=== PATIENT | female | born 1990 | race Caucasian/White ===

== ENCOUNTER 2017-12-21 11:43 | Emergency (ER) | payer BC ==
[~2017-12-21] VITALS: Ht 165.1 cm; Wt 56.7 kg
[~2017-12-21 11:43] MED LIST: CPR500T PO; HYDR1TAB8 OP; NITR-65 PO; PHEN100T17 PO; [UNRECOGNIZED DRUG - REMARK]
--- OUTSIDE RECORDS SUMMARY | 2017-12-21 11:50 | XMS REPORT ---
Author Author TOM MUIR Organization [facility] Address [address] [place] [address] Care Team Providers Care Solar Systems Designer Name Role Phone TOM MUIR Unavailable PROBLEMS Type Condition ICD9-CM Code [id number] Code Onset Dates Condition Status SNOMED Code Problem School physical exam Z02.0 Active [id number] ALLERGIES Substance Reaction Event Type Date Status PredniSONE Unknown Drug Allergy February, Active SOCIAL HISTORY Never Assessed PLAN OF CARE Activity Details Follow Up prn Reason: VITAL SIGNS Height 65 in 2017-02-21 Weight 143.6 lbs 2017-02-21 Temperature 98.4 degrees Fahrenheit 2017-02-21 Heart Rate 88 bpm 2017-02-21 Respiratory Rate 20 2017-02-21 BMI 23.89 kg/m2 2017-02-21 Blood pressure systolic 112 mmHg 2017-02-21 Blood pressure diastolic 66 mmHg 2017-02-21 MEDICATIONS Medication Instructions Dosage Frequency Start Date End Date Duration Status Sudafed 12 Hour 120 MG Orally every 12 hrs 1 tablet as needed 12h February, 10 days Active Augmentin 875-125 MG Orally every 12 hrs 1 tablet 12h February,February 10 day(s) Active RESULTS No Results PROCEDURES No Known procedures IMMUNIZATIONS No Known Immunizations
--- OUTSIDE RECORDS SUMMARY | 2017-12-21 11:50 | XMS REPORT ---
Author Author MARYJO BUCKNER Organization [facility] Address [address] [place] [address] Care Team Providers Care Bleaching Machine Operator Name Role Phone MARYJO BUCKNER Unavailable PROBLEMS Type Condition ICD9-CM Code [id number] Code Onset Dates Condition Status SNOMED Code Assessment Bug bite, initial encounter W57.XXXA Jun, Active [id number] ALLERGIES Substance Reaction Event Type Date Status PredniSONE Unknown Drug Allergy Jun, Active SOCIAL HISTORY No smoking Hx information available PLAN OF CARE VITAL SIGNS Height 65 in 2016-06-30 Weight 141.0 lbs 2016-06-30 Heart Rate 84 bpm 2016-06-30 Respiratory Rate 20 2016-06-30 BMI 23.46 kg/m2 2016-06-30 Blood pressure systolic 98 mmHg 2016-06-30 Blood pressure diastolic 60 mmHg 2016-06-30 MEDICATIONS Medication Instructions Dosage Frequency Start Date End Date Duration Status Benadryl Itch Stopping 1-0.1 % Active Triamcinolone Acetonide 0.1 % Externally Twice a day 1 application to affected area 12h Jun, 5 days Active Calamine - Active RESULTS No Results PROCEDURES Procedure Date Ordered Related Diagnosis Body Site Office Visit, Est Pt., Level 3 Jun 30, 2016 IMMUNIZATIONS No Known Immunizations
--- OUTSIDE RECORDS SUMMARY | 2017-12-21 11:50 | XMS REPORT ---
Author Author DAVID MARCIAL Organization [facility] Address [address] [place] [address] Care Team Providers Care Laborer Ammunition Assembly Name Role Phone DAVID MARCIAL Unavailable PROBLEMS Type Condition ICD9-CM Code [id number] Code Onset Dates Condition Status SNOMED Code Assessment Encounter for occupational history and physical examination Z02.89 Jun, Active [id number] ALLERGIES Substance Reaction Event Type Date Status PredniSONE Unknown Drug Allergy Jun, Active SOCIAL HISTORY No smoking Hx information available PLAN OF CARE VITAL SIGNS Height 65 in 2016-06-13 Weight 141.6 lbs 2016-06-13 Heart Rate 80 bpm 2016-06-13 Respiratory Rate 18 2016-06-13 BMI 23.56 kg/m2 2016-06-13 Blood pressure systolic 108 mmHg 2016-06-13 Blood pressure diastolic 70 mmHg 2016-06-13 MEDICATIONS No Known Medications RESULTS No Results PROCEDURES Procedure Date Ordered Related Diagnosis Body Site Office Visit, Est Pt., Level 3 Jun 13, 2016 IMMUNIZATIONS No Known Immunizations
--- OUTSIDE RECORDS SUMMARY | 2017-12-21 11:50 | XMS REPORT ---
Author ONOFRE Jenkins [facility] [place] eClinicalWorks Address Unknown Phone Unavailable Care Team Providers Care Supervisor Contact And Service Clerks Name Role Phone ONOFRE KELLEY CP Unavailable Allergies No Known Allergies Problems Problem Type Condition Code Onset Dates Condition Status Assessment Visit for TB skin test Z11.1 Active Medications No Known Medications Procedures Procedure Coding System Code Date TB INTRADERMAL TEST CPT-4 99075 Jun 05, 2016 Results No Known Results Summary Purpose eClinicalWorks Submission
[2017-12-21] MEDS ORDERED: ONDANSETRON 4 MG/2 ML (SDV) Z0FRAN IVP ONE (12:00)
[2017-12-21 12:14] LABS: BASOPHILS % (AUTO) 0 % (0-10); EOSINOPHILS # (AUTO) 0.1 10^3/uL (0.0-0.3); EOSINOPHILS % (AUTO) 1 % (0-10); HEMATOCRIT 38 % (35-52); HEMOGLOBIN 13.7 G/DL (11.5-16.0); LYMPHOCYTES # (AUTO) 1.4 X 10^3 (1.0-4.0); LYMPHOCYTES % (AUTO) 14 % (12-44); MEAN CORPUSCULAR HEMOGLOBIN 30 PG (25-34); MEAN CORPUSCULAR HGB CONC 36 G/DL (32-36); MEAN CORPUSCULAR VOLUME 83 FL (80-99); MEAN PLATELET VOLUME 10.3 FL (7.4-10.4); MONOCYTES # (AUTO) 0.4 X 10^3 (0.0-1.0); MONOCYTES % (AUTO) 4 % (0-12); NEUTROPHILS % (AUTO) 81 % (42-75); PLATELET COUNT 234 10^3/uL (130-400); RED BLOOD COUNT 4.56 10^6/uL (4.35-5.85); RED CELL DISTRIBUTION WIDTH 12.1 % (10.0-14.5); WHITE BLOOD COUNT 9.9 10^3/uL (4.3-11.0)
[2017-12-21 12:14] LABS: BILIRUBIN,URINE NEGATIVE (NEGATIVE); CLARITY,URINE CLEAR; COLOR,URINE YELLOW; GLUCOSE, URINE (UA) NEGATIVE (NEGATIVE); KETONES,URINE 1+ (NEGATIVE); LEUKOCYTE ESTERASE ,URINE 1+ (NEGATIVE); NITRITE,URINE NEGATIVE (NEGATIVE); PH,URINE 7 (5-9); PROTEIN,URINE 2+ (NEGATIVE); UROBILINOGEN,URINE NORMAL (NORMAL)
[2017-12-21 12:18] LABS: HCG,QUALITATIVE URINE NEGATIVE (NEGATIVE)
[2017-12-21 12:25] LABS: AMPHETAMINE SCREEN, URINE NEGATIVE (NEGATIVE); BARBITURATE SCREEN URINE NEGATIVE (NEGATIVE); BENZODIAZEPINES SCREEN URINE NEGATIVE (NEGATIVE); CANNABINOID SCREEN, URINE NEGATIVE (NEGATIVE); COCAINE SCREEN URINE NEGATIVE (NEGATIVE); METHADONE STAT NEGATIVE (NEGATIVE); METHAMPHETAMINE SCREEN URINE S NEGATIVE (NEGATIVE); OPIATE SCREEN URINE NEGATIVE (NEGATIVE); OXYCODONE STAT NEGATIVE (NEGATIVE); PROPOXYPHENE STAT NEGATIVE (NEGATIVE); TRICYCLIC ANTIDEPRESSANTS SCRE NEGATIVE (NEGATIVE)
[2017-12-21 12:33] LABS: ALANINE AMINOTRANSFERASE 15 U/L (0-55); ALBUMIN 4.2 GM/DL (3.2-4.5); ALKALINE PHOSPHATASE 45 U/L (40-136); BILIRUBIN,TOTAL 0.4 MG/DL (0.1-1.0); BUN/CREATININE RATIO 15; CALCIUM 9.2 MG/DL (8.5-10.1); CARBON DIOXIDE 22 MMOL/L (21-32); CHLORIDE 109 MMOL/L (98-107); CREATININE SERUM 0.72 MG/DL (0.60-1.30); GFR ESTIMATED > 60; GLUCOSE 112 MG/DL (70-105); POTASSIUM 3.9 MMOL/L (3.6-5.0); SODIUM 140 MMOL/L (135-145); TOTAL PROTEIN 6.8 GM/DL (6.4-8.2)
[2017-12-21 12:35] LABS: AMORPHOUS SEDIMENT,UR MOD AMOR PHOSPHATE /LPF
[2017-12-21 12:39] LABS: WBC,URINE RARE /HPF
--- NOTE | 2017-12-21 12:39 | ED Abdominal Pain ---
General Chief Complaint: Abdominal/GI Problems Stated Complaint: ABD PAIN Nursing Triage Note: C/O LOWER TRANSVERSE ABD PAIN SINCE THIS AM. nAUSEA WITH VOMITING. BURING WITH URINATION Sepsis Screen: No Definite Risk Source of Information: Patient History of Present Illness Date Seen by Provider: Dec 21, 2017 Time Seen by Provider: 12:36 Initial Comments The patient is a 27-year-old white female. She presents with a chief complaint of suprapubic abdominal pain. She states that this began early this morning and awakened her from sleep. She has a past history of kidney stones. She also states that she has been given a tentative diagnosis of polycystic ovarian disease although she really does not exhibit the usual body type. She does not describe dysuria. She is on her menstrual period and actively flowing. She had a bowel movement today which was somewhat loose. She took NSAIDs earlier and had reasonable relief of pain. Timing/Duration: 12 Hours Severity/Quality: Moderate Location: Suprapubic Radiation: Back Activities at Onset: Rest Allergies and Home Medications Allergies Coded Allergies: prednisone (Verified Allergy, Intermediate, HALLUCINATION, 12/21/17) WAS WORSE WHEN SHE WAS A CHILD NOW JUST NOT GIVEN HIGH DOSES Patient Home Medication List Home Medication List Reviewed: Yes Review of Systems Constitutional: see HPI EENTM: No Symptoms Reported Respiratory: No Symptoms Reported Cardiovascular: No Symptoms Reported Gastrointestinal: Diarrhea Genitourinary: Other (menses) Musculoskeletal: no symptoms reported Skin: no symptoms reported Psychiatric/Neurological: No Symptoms Reported Endocrine: No Symptoms Reported Hematologic/Lymphatic: No Symptoms Reported Past Iqrvwtb-Fzgoih-Qmyakb Hx Patient Social History Alcohol Use: Rarely Uses Recreational Drug Use: No Recent Foreign Travel: No Contact w/Someone Who Travel: No Recent Infectious Disease Expo: No Recent Hopitalizations: No Physical Abuse: No Sexual Abuse: No Mistreated: No Fear: No Immunizations Up To Date Tetanus Booster (TDap): Unknown Seasonal Allergies Seasonal Allergies: No Surgeries History of Surgeries: No Respiratory History of Respiratory Disorde: No Cardiovascular History of Cardiac Disorders: No Neurological History of Neurological Disord: No Genitourinary History of Genitourinary Disor: Yes Genitourinary Disorders: Kidney Stones Gastrointestinal History of Gastrointestinal Di: No Musculoskeletal History of Musculoskeletal Dis: No Endocrine History of Endocrine Disorders: No HEENT History of HEENT Disorders: No Cancer History of Cancer: No Psychosocial History of Psychiatric Problem: No Suicide Risk Score: 0 Integumentary History of Skin or Integumenta: No Physical Exam Vital Signs VS - Last 72 Hours, by Label 12/21/17 11:52 Temp 97.5 Pulse 88 Resp 18 B/P (MAP) 113/75 (88) Pulse Ox 99 Capillary Refill : Less Than 3 Seconds General Appearance: mild distress HEENT: normal ENT inspection Neck: full range of motion Respiratory: chest non-tender, lungs clear, normal breath sounds, no respiratory distress, no accessory muscle use Cardiovascular: normal peripheral pulses, regular rate, rhythm, no edema, no gallop, no JVD, no murmur Gastrointestinal: abnormal bowel sounds (somewhat hypoactive), tenderness ( tenderness to palpation in the suprapubic area the upper abdomen was unaffected. ) Extremities: normal range of motion, non-tender, normal inspection, no pedal edema, no calf tenderness, normal capillary refill, pelvis stable Back: normal inspection Progress/Results/Core Measures Results/Orders Lab Results Laboratory Tests Test 12/21/17 11:50 12/21/17 12:06 Range/Units Urine Color YELLOW Urine Clarity CLEAR Urine pH 7 5-9 Urine Specific [place] 1.010 L 1.016-1.022 Urine Protein 2+ H NEGATIVE Urine Glucose (UA) NEGATIVE NEGATIVE Urine Ketones 1+ H NEGATIVE Urine Nitrite NEGATIVE NEGATIVE Urine Bilirubin NEGATIVE NEGATIVE Urine Urobilinogen NORMAL NORMAL MG/DL Urine Leukocyte Esterase 1+ H NEGATIVE Urine RBC (Auto) 5+ H NEGATIVE Urine RBC 2-5 H /HPF Urine WBC RARE /HPF Urine Squamous Epithelial Cells 2-5 /HPF Urine Crystals PRESENT H /LPF Urine Amorphous Sediment MOD AZEEM PHOSPHATE H /LPF Urine Bacteria MODERATE H /HPF Urine Casts NONE /LPF Urine Mucus LARGE H /LPF Urine Culture Indicated NO Urine Test NEGATIVE NEGATIVE Urine Opiates Screen NEGATIVE NEGATIVE Urine Oxycodone Screen NEGATIVE NEGATIVE Urine Methadone Screen NEGATIVE NEGATIVE Urine Propoxyphene Screen NEGATIVE NEGATIVE Urine Barbiturates Screen NEGATIVE NEGATIVE Ur Tricyclic Antidepressants Screen NEGATIVE NEGATIVE Urine Phencyclidine Screen NEGATIVE NEGATIVE Urine Amphetamines Screen NEGATIVE NEGATIVE Urine Methamphetamines Screen NEGATIVE NEGATIVE Urine Benzodiazepines Screen NEGATIVE NEGATIVE Urine Cocaine Screen NEGATIVE NEGATIVE Urine Cannabinoids Screen NEGATIVE NEGATIVE White Blood Count 9.9 4.3-11.0 10^3/uL Red Blood Count 4.56 4.35-5.85 10^6/uL Hemoglobin 13.7 11.5-16.0 G/DL Hematocrit 38 35-52 % Mean Corpuscular Volume 83 80-99 FL Mean Corpuscular Hemoglobin 30 25-34 PG Mean Corpuscular Hemoglobin Concent 36 32-36 G/DL Red Cell Distribution Width 12.1 10.0-14.5 % Platelet Count 234 130-400 10^3/uL Mean Platelet Volume 10.3 7.4-10.4 FL Neutrophils (%) (Auto) 81 H 42-75 % Lymphocytes (%) (Auto) 14 12-44 % Monocytes (%) (Auto) 4 0-12 % Eosinophils (%) (Auto) 1 0-10 % Basophils (%) (Auto) 0 0-10 % Neutrophils # (Auto) 8.0 H 1.8-7.8 X 10^3 Lymphocytes # (Auto) 1.4 1.0-4.0 X 10^3 Monocytes # (Auto) 0.4 0.0-1.0 X 10^3 Eosinophils # (Auto) 0.1 0.0-0.3 10^3/uL Basophils # (Auto) 0.0 0.0-0.1 10^3/uL Sodium Level 140 135-145 MMOL/L Potassium Level 3.9 3.6-5.0 MMOL/L Chloride Level 109 H 98-107 MMOL/L Carbon Dioxide Level 22 21-32 MMOL/L Anion Gap 9 5-14 MMOL/L Blood Urea Nitrogen 11 7-18 MG/DL Creatinine 0.72 0.60-1.30 MG/DL Estimat Glomerular Filtration Rate > 60 BUN/Creatinine Ratio 15 Glucose Level 112 H 70-105 MG/DL Calcium Level 9.2 8.5-10.1 MG/DL Total Bilirubin 0.4 0.1-1.0 MG/DL Aspartate Amino Transf (AST/SGOT) 15 5-34 U/L Alanine Aminotransferase (ALT/SGPT) 15 0-55 U/L Alkaline Phosphatase 45 40-136 U/L Total Protein 6.8 6.4-8.2 GM/DL Albumin 4.2 3.2-4.5 GM/DL My Orders Orders - LUZ ELENA MILLER MD Ct Abd/Pelvis Wo(Kidney Stone) (12/21/17 12:53) Medications Given in ED Current Medications Medications Dose Ordered Sig/Ama Route Start Time Stop Time Status Last Admin Dose Admin Ondansetron HCl 4 mg ONCE ONCE IVP 12/21/17 12:00 12/21/17 12:01 DC 12/21/17 12:11 4 MG Vital Signs/I&O Vital Sign - Last 12Hours 12/21/17 11:52 Temp 97.5 Pulse 88 Resp 18 B/P (MAP) 113/75 (88) Pulse Ox 99 Blood Pressure Mean: 88 Point of Care Testing Urine -Bedside: Negative Departure Communication (Admissions) Progress Notes The CT scan shows a 5.4 mm stone at the distal right ureter/ UVJ. dISCUSSED WITH dR. Howard at 1350. Patient will be seen by him tomorrow. Impression Impression: Primary Impression: right distal ureteral stone Disposition: HOME, SELF-CARE Condition: Stable/Unchanged Departure-Patient Inst. Decision time for Depature: 13:51 Referrals: HALLE DING MD (PCP/Family) Primary Care Physician Patient Instructions: No Instuctions Given Add. Discharge Instructions: All discharge instructions reviewed with patient and/or family. Voiced understanding. See Dr. Howard tomorrow at his office at 1 p.m. Lots of liquids If pain unbearable return to ER for admission. Strain all urine. LUZ ELENA MILLER MD Dec 21, 2017 12:39
[2017-12-21 12:40] LABS: BACTERIA,URINE MODERATE /HPF
--- NOTE | 2017-12-21 13:29 | Diagnostic Imaging Report ---
EXAMINATION: CT abdomen and pelvis without contrast dated 12/21/2017. TECHNIQUE: Multiple contiguous axial images were obtained through the abdomen and pelvis without the use of intravenous contrast. INDICATION: Stone search, lower abdominal pain since today, blood in urine, and burning sensation. COMPARISON: 06/09/2009. FINDINGS: Nonopacified abdominal viscera is limited due to the lack of IV contrast. No gross abnormalities appreciated within the liver or the spleen. Large oval density medial to the spleen, most likely a splenule. This is stable since the previous examination to slightly increased in size but could be confirmed as a splenule with post contrast imaging non emergently. The adrenal glands and pancreas are unremarkable. Gallbladder normal. There is no nephrolithiasis or hydronephrosis on either kidney. The ureters are difficult to follow. There is a rounded calcification in the right hemipelvis, image 108/143. This could represent a phlebolith. A ureteral stone is difficult to exclude however, given the size of this lesion, hydronephrosis would be expected. Correlate with site of pain and followup could be performed, as clinically warranted. This calcification measures 5.4 mm in size. No free fluid or air is seen in the abdomen. There is no inflammatory change about the bowel loops. The osseous structures demonstrate no evidence for acute abnormalities. Lung bases are normal in appearance. IMPRESSION: 1. 5.5 mm density in the right hemipelvis is nonspecific. The distal ureter in this region is not well seen. Although this is likely a phlebolith, if there is right-sided pain, a distal ureteral stone is not excluded. No hydronephrosis appreciated. 2. Remaining structures are grossly unremarkable. Dictated by: Dictated on workstation # [id number]
[2017-12-21] MEDS ORDERED: LIDOCAINE 1% INJ 50 ML (XYLOCAINE) VIAL ONE (13:55)
[2017-12-21] MEDS ORDERED: LIDOCAINE 1% INJ 20 ML (XYLOCAINE) VIAL INJ ONE (14:00)
[2017-12-21] MEDS ORDERED: cefTRIAXone 1 GM (ROCEPHIN) VIAL IM ONE (14:00)
[2017-12-21 14:38] VITALS: BP 107/65
== END 2017-12-21 14:38 | disposition home or self-care (01) ==
LOC: EDUNIT# 11:43 → ER 11:46
DX: N20.1 Calculus of ureter (principal); Z87.442 Personal history of urinary calculi; Z88.8 Allergy status to other drugs, medicaments and biological substances
CPT/HCPCS: 36415; 74176; 80053; 80306; 81000; 84703; 85025; 96372; 96374

== ENCOUNTER → 2017-12-29 | Outpatient (CLI) | payer BC, OTHER ==
--- NOTE | 2017-12-29 16:52 | Diagnostic Imaging Report ---
INDICATION: Possible ureteral calculus. COMPARISON: 06/09/2009 FINDINGS: Single supine radiographic view of the abdomen was obtained and demonstrate persistent extraosseous calcification projecting over the right pelvis. It is stable in position when compared to previous CT. No new extraosseous calcifications are seen. Small bowel loops are nondistended. There is no large collection of free intraperitoneal air. Bony structures show no acute abnormalities. IMPRESSION: 1. Right-sided pelvic calcification is stable in position. 2. Nonobstructive small bowel gas pattern. Dictated by: Dictated on workstation # [id number]
== END ==
LOC: RAD 16:19
PROVIDERS: ATTEND Urology
DX: N20.1 Calculus of ureter (principal)
CPT/HCPCS: 74018